=== PATIENT | male | born 1970 | race Caucasian/White ===

== ENCOUNTER 2017-03-04 17:00 | Inpatient (IN) | payer OTHER ==
[2017-03-04] MEDS ORDERED: Aspirin 325 mg EC Tablets PO STA (18:11)
--- NOTE | 2017-03-04 18:11 | C.PDOC ---
History Of Present Illness 46 yr old male presents to the ER with complaints of worsening chest pain since morning. Patient states he has had intermittent exertional chest pain for the past 1 month and is s/p nuclear stress on 03/01 but now has new onset of non- exertional left sided chest pain. States the pain is sharp and more intense than prior and has been wax/wane today. Patient is currently symptomatic. Also reports of SOB which has now resolved. Patient is pending follow up with DR. Weir. Patient denies fever, nausea, vomiting, weakness or numbness. WORSENING CP THIS MORNING. PS W INTERMIT EXERTIONAL CP X 1 MO S/P NUCLEAR STRESS 03/01. NOW W NEW ONSET NONEXERTIONAL L SIDED CP, SHARP AND MORE INTENSE THAN PRIOR. WAX WANE TODAY. SYMPTOMATIC CURRENTLY. +SOB NOW RESOLVED. PENDING FU DR WEIR PMD A WAGNER EXAM MILD DIST NONTOXIC NEG Time Seen by Provider: 03/04/17 17:44 Chief Complaint (Nursing): Chest Pain History Per: Patient History/Exam Limitations: no limitations Onset/Duration Of Symptoms: Intermittent Episodes (1 month), Worse Since ( Morning) Current Symptoms Are (Timing): Still Present Past Medical History Reviewed: Historical Data, Nursing Documentation, Vital Signs Vital Signs: Last Vital Signs Temp 97.8 F 03/04/17 17:11 Pulse 76 03/04/17 18:47 Resp 18 03/04/17 18:47 BP 150/90 03/04/17 18:47 Pulse Ox 99 03/04/17 18:47 - Medical History PMH: HTN, Hypercholesterolemia, Hyperlipidemia Family History: States: No Known Family Hx - Social History Hx Alcohol Use: No Hx Substance Use: No - Immunization History Hx Tetanus Toxoid Vaccination: No Hx Influenza Vaccination: No Hx Pneumococcal Vaccination: No Review Of Systems Except As Marked, All Systems Reviewed And Found Negative. Constitutional: Negative for: Fever Cardiovascular: Positive for: Chest Pain Respiratory: Positive for: Shortness of Breath (Now resolved) Gastrointestinal: Negative for: Nausea, Vomiting Neurological: Negative for: Weakness, Numbness Physical Exam - Physical Exam Appears: Non-toxic, In Acute Distress (Mild) Skin: Warm, Dry, No Rash Head: Atraumatic, Normacephalic Oral Mucosa: Moist Neck: Normal, Normal ROM, Supple Cardiovascular: Rhythm Regular, No Murmur Respiratory: Normal Breath Sounds, No Rales, No Rhonchi, No Stridor, No Wheezing Extremity: Normal ROM, No Swelling Neurological/Psych: Oriented x3, Normal Speech, Normal Motor, Normal Sensation ED Course And Treatment - Laboratory Results Result Diagrams: 03/04/17 18:18 03/04/17 18:18 ECG: Interpreted By Me ECG Rhythm: Sinus Rhythm ECG Interpretation: Normal Rate From EC (BPM) O2 Sat by Pulse Oximetry: 98 (RA) Pulse Ox Interpretation: Normal () - Radiology CXR: Interpreted by Me, Viewed By Me CXR Interpretation: Yes: No Acute Disease Progress - Re-Evaluation Re-evaluation Note: 03/04/17 18:14 D/W DR WEIR WILL ADMIT. REQUESTS CONSULT DR KASPER, ICU CONSULT 03/04/17 18:23 D/W DR KASPER WILL CONSULT, REQUESTS CALLBACK W RESULTS 03/04/17 18:26 D/W DR Roro GONZALEZ C/F ICU WILL EVAL IN ER. ADVISES VISCOUS PATYO AND SHAKA STAT 03/04/17 18:48 CLEARED FOR TELE S/P ICU EVAL - Data Reviewed Data Reviewed: Lab, Diagnostic imaging, EKG, Old records - Critical Care Citical Care: Excluding Proc Time Critical Care Time: 90 minutes - Continuity of Care Discussed patient case with:: Patient, PMD Discussed pt. case with admissions consultant/specialty: Cardiology, Pulmonary/Crit. Care Medical Decision Making Medical Decision Making: PLAN: * CXR * EKG * Troponin * CBCCMP * Lovenox SC * Nitroglycerin TOP * Aspirin PO * Lidocaine Vidcous PO * Magnesium Hydroxide PO * Tylenol PO Disposition Counseled Patient/Family Regarding: Studies Performed, Diagnosis - Disposition Disposition: HOSPITALIZED Disposition Time: 18:48 Condition: STABLE Forms: [facility] (Portuguese) - POA Present On Arrival: None - Clinical Impression Clinical Impression: Unstable angina - Scribe Statement The provider has reviewed the documentation as recorded by the Boraibadolfo Bennett Provider Attestation: All medical record entries made by the Scribe were at my direction and personally dictated by me. I have reviewed the chart and agree that the record accurately reflects my personal performance of the history, physical exam, medical decision making, and the department course for this patient. I have also personally directed, reviewed, and agree with the discharge instructions and disposition. Decision To Admit - Pt Status Changed To: Hospital Disposition Of: Inpatient - Admit Certification Admit to Inpatient:: After my assessment, the patient will require hospitalization for at least two midnights. This is because of the severity of symptoms shown, intensity of services needed, and/or the medical risk in this patient being treated as an outpatient. - InPatient: Physician Admission Certification: I certify that this patient requires 2 or more midnights of care for the following reason:: SEE NOTE - . Bed Request Type: Telemetry Admitting Physician: Gustavo Weir Patient Diagnosis: Unstable angina
[2017-03-04 18:21] LABS: BASO % 0.5 % (0.0-2.0); EOS # 0.3 K/uL (0.0-0.7); EOS % 3.2 % (0.0-4.0); HEMATOCRIT 41.1 % (35.0-51.0); LYMPH # 2.9 K/uL (1.0-4.3); LYMPH % 33.8 % (20.0-40.0); MEAN CELL VOLUME 87.3 fL (80.0-94.0); MEAN CORPUSCULAR HEMOGLOBIN 29.2 pg (27.0-31.0); MEAN CORPUSCULAR HGB CONC 33.4 g/dL (33.0-37.0); MEAN PLATELET VOLUME 9.4 fL (7.2-11.7); MONO # 0.7 K/uL (0.0-0.8); MONO % 8.6 % (0.0-10.0); RED CELL DISTRIBUTION WIDTH 12.7 % (11.5-14.5); WHITE BLOOD COUNT 8.7 K/uL (4.8-10.8)
[2017-03-04] MEDS ORDERED: Nitroglycerin 2% Ointment Foilpak UD TOP STA (18:22)
[2017-03-04] MEDS ORDERED: Magnesium Hydroxide Susp 30 ml UD PO STA (18:24)
[2017-03-04] MEDS ORDERED: Nitroglycerin 2% Ointment Foilpak UD TOP ONE (18:30)
[2017-03-04] MEDS ORDERED: Enoxaparin 30 mg Syringe ONE (18:31)
[2017-03-04 18:32] LABS: ALB/GLOB RATIO 1.4 (1.0-2.1); ALKALINE PHOSPHATASE 77 U/L (38-126); ALT/SGPT 36 U/L (21-72); AST/SGOT 21 U/L (17-59); BILIRUBIN,TOTAL 0.9 mg/dL (0.2-1.3); BLOOD UREA NITROGEN 12 mg/dL (9-20); CALCIUM 8.9 mg/dl (8.6-10.4); CARBON DIOXIDE 27 mmol/L (22-30); CHLORIDE 98 mmol/L (98-107); GFR AFRICAN-AMERICAN > 60; GLUCOSE,RANDOM 105 mg/dL (75-110); POTASSIUM 4.2 mmol/L (3.6-5.2); SODIUM 135 mmol/L (132-148); TOTAL PROTEIN 7.3 g/dL (6.3-8.3)
[2017-03-04] MEDS ORDERED: Aspirin 325 mg EC Tablets PO ONE (18:32)
[2017-03-04] MEDS ORDERED: Magnesium Hydroxide Susp 30 ml UD ONE (18:32)
[2017-03-04] MEDS ORDERED: Enoxaparin 100 mg Syringe SC STA (18:34)
[2017-03-04 18:36] LABS: INR 1.1
[2017-03-04] MEDS: Enoxaparin 30 mg Syringe SC STA ×2 (18:44→19:13)
--- NOTE | 2017-03-04 22:27 | CP.PCM.HP ---
History of Present Illness - History of Present Illness History of Present Illness: 46 year old with mixed hyperlipidemia, on medical treatment for CAd after a positive EST after an exertional CP. now admitted through ED with prolonged CP at rest no EKG changes for cath Present on Admission - Present on Admission Any Indicators Present on Admission: No Review of Systems - Review of Systems Systems not reviewed;Unavailable: Unstable Vital Signs - Constitutional Constitutional: Anorexia, Weakness - EENT Eyes: absent: Discharge Ears: absent: Ear Discharge, Dizziness Nose/Mouth/Throat: absent: Epistaxis - Cardiovascular Cardiovascular: Chest Pain, Diaphoresis, Dyspnea, Palpitations. absent: Acrocyanosis, Syncope - Respiratory Respiratory: Dyspnea. absent: Cough, Hemoptysis - Gastrointestinal Gastrointestinal: absent: Abdominal Pain, Constipation, Diarrhea, Vomiting - Genitourinary Genitourinary: absent: Change in Urinary Stream Past Patient History - Infectious Disease Hx of Infectious Diseases: None - Past Social History Smoking Status: Never Smoked - CARDIAC Hx Hypercholesterolemia: Yes Hx Hypertension: Yes - PSYCHIATRIC Hx Substance Use: No - SURGICAL HISTORY Hx Surgeries: Yes Other/Comment: Right hand surgery in 2008 - ANESTHESIA Hx Anesthesia: Yes Hx Anesthesia Reactions: No Hx Malignant Hyperthermia: No Meds Allergies/Adverse Reactions: Allergies Allergy/AdvReac Type Severity Reaction Status Date / Time No Known Allergies Allergy Verified 03/04/17 17:15 Physical Exam - Constitutional Appears: In Acute Distress - Head Exam Head Exam: ATRAUMATIC - Eye Exam Eye Exam: EOMI - ENT Exam ENT Exam: Mucous Membranes Moist - Neck Exam Neck exam: Negative for: Lymphadenopathy, Thyromegaly - Respiratory Exam Respiratory Exam: Clear to Auscultation Bilateral. absent: Rales, Rhonchi, Wheezes - Cardiovascular Exam Cardiovascular Exam: REGULAR RHYTHM. absent: Gallop, JVD, Systolic Murmur - GI/Abdominal Exam GI & Abdominal Exam: Normal Bowel Sounds. absent: Organomegaly - Rectal Exam Rectal Exam: Deferred - Extremities Exam Extremities exam: Positive for: normal capillary refill. Negative for: calf tenderness - Back Exam Back exam: NORMAL INSPECTION - Neurological Exam Neurological exam: Alert, Oriented x3 - Psychiatric Exam Psychiatric exam: Normal Mood - Skin Skin Exam: Dry Results - Vital Signs Recent Vital Signs: Last Vital Signs Temp 97.7 F 03/04/17 22:05 Pulse 72 03/04/17 22:05 Resp 18 03/04/17 22:05 BP 118/72 03/04/17 22:05 Pulse Ox 100 03/04/17 22:05 - Labs Result Diagrams: 03/05/17 07:27 03/05/17 07:27 Labs: Laboratory Results - last 24 hr 03/04/17 03/04/17 03/04/17 18:18 18:18 18:18 WBC 8.7 RBC 4.71 Hgb 13.7 Hct 41.1 MCV 87.3 MCH 29.2 MCHC 33.4 RDW 12.7 Plt Count 328 MPV 9.4 Neut % (Auto) 53.9 Lymph % (Auto) 33.8 [place] % (Auto) 8.6 Eos % (Auto) 3.2 Baso % (Auto) 0.5 Neut # 4.7 Lymph # 2.9 [place] # 0.7 Eos # 0.3 Baso # 0.0 PT 12.2 INR 1.1 APTT 33 Sodium 135 Potassium 4.2 Chloride 98 Carbon Dioxide 27 Anion Gap 13 BUN 12 Creatinine 0.8 Est GFR ( Amer) > 60 Est GFR (Non-Af Amer) > 60 Random Glucose 105 Calcium 8.9 Total Bilirubin 0.9 AST 21 ALT 36 Alkaline Phosphatase 77 Troponin I < 0.0120 Total Protein 7.3 Albumin 4.3 Globulin 3.0 Albumin/Globulin Ratio 1.4 Blood Type Antibody Screen 03/04/17 18:32 WBC RBC Hgb Hct MCV MCH MCHC RDW Plt Count MPV Neut % (Auto) Lymph % (Auto) [place] % (Auto) Eos % (Auto) Baso % (Auto) Neut # Lymph # [place] # Eos # Baso # PT INR APTT Sodium Potassium Chloride Carbon Dioxide Anion Gap BUN Creatinine Est GFR ( Amer) Est GFR (Non-Af Amer) Random Glucose Calcium Total Bilirubin AST ALT Alkaline Phosphatase Troponin I Total Protein Albumin Globulin Albumin/Globulin Ratio Blood Type A POSITIVE Antibody Screen Negative Assessment & Plan (1) Unstable angina Status: Acute Comment: Nstemi, medical treatment, for cath, f/u with invass[facility] cardiology Decision To Admit - Pt Status Changed To: Hospital Disposition Of: Inpatient - Admit Certification Admit to Inpatient:: After my assessment, the patient will require hospitalization for at least two midnights. This is because of the severity of symptoms shown, intensity of services needed, and/or the medical risk in this patient being treated as an outpatient. - InPatient: Physician Admission Certification:: yes - . Bed Request Type: Regular
[2017-03-04] MEDS ORDERED: HYDROmorphone 1 mg/ml ISec IVP PRN (22:28)
[2017-03-05] MEDS: Oxycodone/Acetaminophen 5/325 mg Tab PO PRN (02:04)
--- NOTE | 2017-03-05 05:12 | CON ---
CARDIOLOGY CONSULTATION REASON FOR CONSULTATION: Chest pain. HISTORY OF PRESENT ILLNESS: The patient is a 46-year-old [place] male who has history of hypertension, who presented to Dr. Campbell with chest pain. Myoview stress test was performed 3 days ago which was reported to be positive for mild inferolateral ischemia. Ejection fraction was measured as 61%. The patient presented because of chest pain that is tightness in nature, associated with diaphoresis, the patient is quite chest pain free at this time. SOCIAL HISTORY: Nonsmoker. FAMILY HISTORY: , lives with his . Works as a shuttle van driver. MEDICATIONS: The patient was not taking medications at home. PHYSICAL EXAMINATION: GENERAL: The patient is middle-aged male, who does not appear to be in any distress. VITAL SIGNS: Blood pressure 132/85, heart rate 77, temperature 97.8, respirations 18. HEENT: Normocephalic. NECK: No JVD. CHEST: Clear. HEART: S1 and S2 regular. ABDOMEN: Soft. EXTREMITIES: No edema. LABORATORY DATA: Today's SMA-7 is within normal limits. Yesterday's troponin is negative. PT, PTT, and INR are within normal limits. CBC within normal limits. EKG revealed normal sinus rhythm. Chest x-ray revealed normal cardiac silhouette, no infiltrate or effusion. ASSESSMENT: 1. Chest pain, rule out myocardial infarction. 2. Positive Myoview stress test with evidence of inferolateral ischemia. RECOMMENDATIONS: Admit the patient to telemetry, start therapeutic subcutaneous Lovenox at 90 mg once a day, start Lipitor at 40 mg once a day, aspirin 81 mg once a day, Plavix 75 once a day, Lopressor 25 mg twice a day. Cardiac catheterization will be performed as early as Monday and if the patient develops acute ischemic EKG changes, significant elevated troponins, hemodynamic instability or malignant ventricular arrhythmia, then cardiac catheterization will be considered on an emergency basis. Bill Hilton MD
[2017-03-05 07:36] LABS: BASO % 0.6 % (0.0-2.0); EOS # 0.2 K/uL (0.0-0.7); EOS % 3.2 % (0.0-4.0); HEMATOCRIT 38.6 % (35.0-51.0); LYMPH # 2.8 K/uL (1.0-4.3); LYMPH % 37.3 % (20.0-40.0); MEAN CELL VOLUME 88.1 fL (80.0-94.0); MEAN CORPUSCULAR HEMOGLOBIN 29.5 pg (27.0-31.0); MEAN CORPUSCULAR HGB CONC 33.5 g/dL (33.0-37.0); MEAN PLATELET VOLUME 9.4 fL (7.2-11.7); MONO # 0.6 K/uL (0.0-0.8); MONO % 8.3 % (0.0-10.0); NRBC % 0.1 % (0.0-2.0); RED CELL DISTRIBUTION WIDTH 12.8 % (11.5-14.5); WHITE BLOOD COUNT 7.6 K/uL (4.8-10.8)
[2017-03-05 08:01] LABS: ALB/GLOB RATIO 1.4 (1.0-2.1); ALKALINE PHOSPHATASE 75 U/L (38-126); ALT/SGPT 33 U/L (21-72); AST/SGOT 22 U/L (17-59); BILIRUBIN,TOTAL 0.8 mg/dL (0.2-1.3); BLOOD UREA NITROGEN 14 mg/dL (9-20); CALCIUM 8.7 mg/dl (8.6-10.4); CARBON DIOXIDE 27 mmol/L (22-30); CHLORIDE 100 mmol/L (98-107); CHOLESTEROL 118 mg/dL (0-199); GFR AFRICAN-AMERICAN > 60; GLUCOSE,RANDOM 96 mg/dL (75-110); POTASSIUM 4.1 mmol/L (3.6-5.2); SODIUM 136 mmol/L (132-148); TOTAL PROTEIN 6.7 g/dL (6.3-8.3)
[2017-03-05] MEDS: Enoxaparin 40 mg Syringe SC SCH (10:28)
--- NOTE | 2017-03-05 13:58 | RAD ---
PROCEDURE: CHEST RADIOGRAPH, 1 VIEW HISTORY: chest pain COMPARISON: None available. FINDINGS: LUNGS: Clear. PLEURA: No pneumothorax or pleural fluid seen. CARDIOVASCULAR: Heart size upper limits of normal. OSSEOUS STRUCTURES: No significant abnormalities. VISUALIZED UPPER ABDOMEN: Normal. OTHER FINDINGS: None. IMPRESSION: No active disease.
--- NOTE | 2017-03-05 19:49 | CP.PCM.PN ---
Subjective - Date & Time of Evaluation Date of Evaluation: 03/05/17 Time of Evaluation: 19:00 - Subjective Subjective: no further, cp for cath Objective - Vital Signs/Intake and Output Vital Signs (last 24 hours): Temp Pulse Resp BP Pulse Ox 97.7 F 65 20 122/79 98 03/05/17 16:45 03/05/17 16:45 03/05/17 16:45 03/05/17 17:54 03/05/17 16:45 - Medications Medications: Current Medications Acetaminophen (Tylenol 325mg Tab) 650 mg PO Q6 PRN PRN Reason: Fever >100.4 F Aspirin (Aspirin Chewable) 81 mg PO DAILY [facility] Last Admin: 03/05/17 10:25 Dose: 81 mg Enoxaparin Sodium (Lovenox) 40 mg SC DAILY [facility] Last Admin: 03/05/17 10:28 Dose: 40 mg Hydromorphone HCl (Dilaudid) 1 mg IVP Q6H PRN PRN Reason: Pain, severe (8-10) Metoprolol Tartrate (Lopressor) 25 mg PO BID [facility] Last Admin: 03/05/17 17:54 Dose: 25 mg Ondansetron HCl (Zofran Inj) 4 mg IVP Q6 PRN PRN Reason: Nausea/Vomiting Oxycodone/Acetaminophen (Percocet 5/325 Mg Tab) 1 tab PO Q4H PRN PRN Reason: Pain, moderate (4-7) Stop: 03/07/17 22:29 Last Admin: 03/05/17 02:04 Dose: 1 tab Rosuvastatin Calcium (Crestor) 20 mg PO HS [facility] Last Admin: 03/04/17 22:44 Dose: 20 mg Sucralfate (Carafate Tab) 1 gm PO BID [facility] Last Admin: 03/05/17 17:54 Dose: 1 gm - Labs Labs: 03/05/17 07:27 03/05/17 07:27 PT 12.2 SECONDS (9.7-12.2) 03/04/17 18:18 INR 1.1 03/04/17 18:18 APTT 33 SECONDS (21-34) 03/04/17 18:18 - Constitutional Appears: Non-toxic - Head Exam Head Exam: ATRAUMATIC - Eye Exam Eye Exam: EOMI - ENT Exam ENT Exam: Mucous Membranes Moist - Neck Exam Neck Exam: absent: Lymphadenopathy, Thyromegaly - Respiratory Exam Respiratory Exam: Clear to Ausculation Bilateral. absent: Rales - Cardiovascular Exam Cardiovascular Exam: REGULAR RHYTHM. absent: Murmur - GI/Abdominal Exam GI & Abdominal Exam: Normal Bowel Sounds. absent: Organomegaly - Rectal Exam Rectal Exam: Deferred - Extremities Exam Extremities Exam: Normal Capillary Refill. absent: Calf Tenderness - Neurological Exam Neurological Exam: Alert, Oriented x3 - Psychiatric Exam Psychiatric exam: Normal Mood - Skin Skin Exam: Dry Assessment and Plan (1) Unstable angina Status: Acute
--- NOTE | 2017-03-05 20:36 | PN ---
SUBJECTIVE: The patient denies any shortness of breath. No chest pain at this time. No reported ventricular arrhythmia. PHYSICAL EXAMINATION: VITAL SIGNS: Blood pressure 122/79, heart rate 65, temperature 97.7, respirations 20. HEENT: Normocephalic. CHEST: Clear. HEART: S1 and S2 regular. ABDOMEN: Soft. EXTREMITIES: No edema. LABORATORY DATA: Three sets of troponins are negative. Today's SMA-7 is within normal limit. ASSESSMENT: 1. Chest pain, myocardial infarction is ruled out. 2. Recent positive Myoview stress test. RECOMMENDATIONS: Continue current aspirin, Crestor, Lopressor, subcutaneous Lovenox. The patient will be scheduled for cardiac catheterization for tomorrow if the schedule allows and would be kept n.p.o. after breakfast. Bill Hilton MD
[2017-03-06] MEDS: Oxycodone/Acetaminophen 5/325 mg Tab PO PRN (08:17)
[2017-03-06] MEDS: Enoxaparin 40 mg Syringe SC SCH (10:55)
--- NOTE | 2017-03-06 12:05 | CP.PCM.PN ---
Subjective - Date & Time of Evaluation Date of Evaluation: 03/06/17 Time of Evaluation: 13:00 - Subjective Subjective: For coronary angiogram today, and negative enzymes. Unstable angina, non-ST elevation myocardial infarction with negative troponin. New characters of chest pain. At rest now. Objective - Vital Signs/Intake and Output Vital Signs (last 24 hours): Temp Pulse Resp BP Pulse Ox 98.1 F 73 18 167/65 H 97 03/06/17 08:20 03/06/17 08:20 03/06/17 08:20 03/06/17 09:24 03/06/17 08:20 Intake and Output: 03/06/17 03/06/17 06:59 18:59 Intake Total 240 Balance 240 - Medications Medications: Current Medications Acetaminophen (Tylenol 325mg Tab) 650 mg PO Q6 PRN PRN Reason: Fever >100.4 F Aspirin (Aspirin Chewable) 81 mg PO DAILY [facility] Last Admin: 03/06/17 09:23 Dose: 81 mg Enoxaparin Sodium (Lovenox) 40 mg SC DAILY [facility] Last Admin: 03/06/17 10:55 Dose: 40 mg Hydromorphone HCl (Dilaudid) 1 mg IVP Q6H PRN PRN Reason: Pain, severe (8-10) Metoprolol Tartrate (Lopressor) 25 mg PO BID [facility] Last Admin: 03/06/17 09:24 Dose: 25 mg Ondansetron HCl (Zofran Inj) 4 mg IVP Q6 PRN PRN Reason: Nausea/Vomiting Last Admin: 03/05/17 20:40 Dose: 4 mg Oxycodone/Acetaminophen (Percocet 5/325 Mg Tab) 1 tab PO Q4H PRN PRN Reason: Pain, moderate (4-7) Stop: 03/07/17 22:29 Last Admin: 03/06/17 08:17 Dose: 1 tab Rosuvastatin Calcium (Crestor) 20 mg PO HS [facility] Last Admin: 03/05/17 21:01 Dose: 20 mg Sucralfate (Carafate Tab) 1 gm PO BID [facility] Last Admin: 03/06/17 09:24 Dose: 1 gm - Labs Labs: 03/05/17 07:27 03/05/17 07:27 PT 12.2 SECONDS (9.7-12.2) 03/04/17 18:18 INR 1.1 03/04/17 18:18 APTT 33 SECONDS (21-34) 03/04/17 18:18 - Constitutional Appears: Non-toxic - Head Exam Head Exam: ATRAUMATIC - Eye Exam Eye Exam: EOMI - ENT Exam ENT Exam: Mucous Membranes Moist - Neck Exam Neck Exam: absent: Lymphadenopathy, Thyromegaly - Respiratory Exam Respiratory Exam: Clear to Ausculation Bilateral. absent: Rales, Wheezes - Cardiovascular Exam Cardiovascular Exam: REGULAR RHYTHM. absent: Murmur - GI/Abdominal Exam GI & Abdominal Exam: Normal Bowel Sounds. absent: Organomegaly - Rectal Exam Rectal Exam: Deferred - Neurological Exam Neurological Exam: Alert, Oriented x3 - Psychiatric Exam Psychiatric exam: Normal Mood - Skin Skin Exam: Dry Assessment and Plan (1) Unstable angina Status: Acute
--- NOTE | 2017-03-06 15:25 | PN ---
SUBJECTIVE: The patient denies any chest pain. No reported ventricular arrhythmia. PHYSICAL EXAMINATION: VITAL SIGNS: Blood pressure 107/65, heart rate 73, temperature 98.1, respirations 18. HEENT: Normocephalic. CHEST: Clear. HEART: S1 and S2 regular. EXTREMITIES: No edema. LABORATORY DATA: Total of three troponins are within normal limits. ASSESSMENT: 1. Chest pain, myocardial infarction is ruled out. 2. Recent positive Myoview stress test. RECOMMENDATIONS: Continue current aspirin, Crestor, Lopressor and subcutaneous Lovenox. 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 Bill Hilton MD
[2017-03-07] MEDS: Enoxaparin 40 mg Syringe SC SCH (10:53)
[2017-03-07] MEDS ORDERED: Iohexol 350mgl/ml 50 ML ONE (12:29)
[2017-03-07] MEDS ORDERED: Midazolam 2 MG/2 ML VIAL ONE (12:30)
--- NOTE | 2017-03-07 19:14 | CP.PCM.PN ---
Subjective - Date & Time of Evaluation Date of Evaluation: 03/07/17 Time of Evaluation: 12:00 - Subjective Subjective: had cath,critical OM for PCI in am Objective - Vital Signs/Intake and Output Vital Signs (last 24 hours): Temp Pulse Resp BP Pulse Ox 97.7 F 68 20 115/61 97 03/07/17 15:30 03/07/17 15:30 03/07/17 15:30 03/07/17 17:18 03/07/17 15:30 - Medications Medications: Current Medications Acetaminophen (Tylenol 325mg Tab) 650 mg PO Q6 PRN PRN Reason: Fever >100.4 F Aspirin (Aspirin Chewable) 81 mg PO DAILY [facility] Last Admin: 03/07/17 09:44 Dose: 81 mg Clopidogrel Bisulfate (Plavix) 75 mg PO DAILY [facility] Enoxaparin Sodium (Lovenox) 40 mg SC DAILY [facility] Last Admin: 03/07/17 10:53 Dose: Not Given Hydromorphone HCl (Dilaudid) 1 mg IVP Q6H PRN PRN Reason: Pain, severe (8-10) Metoprolol Tartrate (Lopressor) 25 mg PO BID [facility] Last Admin: 03/07/17 17:18 Dose: 25 mg Ondansetron HCl (Zofran Inj) 4 mg IVP Q6 PRN PRN Reason: Nausea/Vomiting Last Admin: 03/05/17 20:40 Dose: 4 mg Oxycodone/Acetaminophen (Percocet 5/325 Mg Tab) 1 tab PO Q4H PRN PRN Reason: Pain, moderate (4-7) Stop: 03/07/17 22:29 Last Admin: 03/06/17 08:17 Dose: 1 tab Rosuvastatin Calcium (Crestor) 20 mg PO HS [facility] Last Admin: 03/06/17 21:24 Dose: 20 mg Sucralfate (Carafate Tab) 1 gm PO BID [facility] Last Admin: 03/07/17 17:18 Dose: 1 gm - Labs Labs: 03/05/17 07:27 03/05/17 07:27 PT 12.2 SECONDS (9.7-12.2) 03/04/17 18:18 INR 1.1 03/04/17 18:18 APTT 33 SECONDS (21-34) 03/04/17 18:18 - Constitutional Appears: Non-toxic - Head Exam Head Exam: ATRAUMATIC - Eye Exam Eye Exam: EOMI - ENT Exam ENT Exam: Mucous Membranes Moist - Neck Exam Neck Exam: absent: Lymphadenopathy, Thyromegaly - Respiratory Exam Respiratory Exam: Clear to Ausculation Bilateral. absent: Rales - Cardiovascular Exam Cardiovascular Exam: REGULAR RHYTHM. absent: Murmur - GI/Abdominal Exam GI & Abdominal Exam: Normal Bowel Sounds. absent: Organomegaly - Rectal Exam Rectal Exam: Deferred - Extremities Exam Extremities Exam: Normal Capillary Refill. absent: Calf Tenderness - Neurological Exam Neurological Exam: Alert, Oriented x3 - Psychiatric Exam Psychiatric exam: Normal Affect - Skin Skin Exam: Dry Assessment and Plan (1) Unstable angina Status: Acute
--- NOTE | 2017-03-08 00:04 | CARDCATH ---
INDICATIONS: The patient is a 46-year-old male, originally from [place], who has a history of hypertension, diabetes mellitus, presented because of chest pain. The patient had recent positive Myoview stress test, cardiac catheterization was recommended. The procedure and its risks were explained to the patient who understood and agreed for the procedure. PROCEDURE: Left and right coronary angiography was performed with 6-Macedonian JL4 and JR4 diagnostic catheters. Left ventriculogram was performed with 6-Macedonian pigtail catheter. The patient tolerated the procedure well without any complications. ANGIOGRAPHIC FINDINGS: Selective injection of left coronary artery revealed left main to be a normal vessel. Left main trifurcated into medium sized LAD, medium-sized circumflex artery and a very small ramus branch. had 60% narrowing in the ostium of the first and second diagonal branches which were small caliber branches. The ramus intermedius branch was diffusely diseased in its proximal segment and has significant ostial disease; however, it was a small caliber branch. The circumflex artery gave off two major obtuse marginal branches, the first OM had critical disease in its proximal portion of about 90%stenosis, the second OM had 50% stenosis in its mid portion, however, it was a small caliber branch. Selective injection of right coronary artery revealed small caliber dominant vessel that was angiographically unremarkable. Left ventriculogram performed in [place] projection revealed normal wall motion, ejection fraction estimated at 55%. 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 RECOMMENDATIONS: PCI to that vessel is recommended and will be scheduled at [facility]. Bill Hilton MD
--- NOTE | 2017-03-08 18:26 | CP.PCM.PN ---
Subjective - Date & Time of Evaluation Date of Evaluation: 03/08/17 Time of Evaluation: 13:00 - Subjective Subjective: had PCI did well Objective - Vital Signs/Intake and Output Vital Signs (last 24 hours): Temp Pulse Resp BP Pulse Ox 98.1 F 70 20 120/73 99 03/08/17 07:00 03/08/17 08:00 03/08/17 07:00 03/08/17 10:09 03/08/17 07:00 Intake and Output: 03/08/17 03/08/17 06:59 18:59 Intake Total 560 Balance 560 - Medications Medications: Current Medications Acetaminophen (Tylenol 325mg Tab) 650 mg PO Q6 PRN PRN Reason: Fever >100.4 F Aspirin (Aspirin Chewable) 81 mg PO DAILY [facility] Last Admin: 03/08/17 10:09 Dose: 81 mg Clopidogrel Bisulfate (Plavix) 75 mg PO DAILY [facility] Last Admin: 03/08/17 10:26 Dose: 75 mg Enoxaparin Sodium (Lovenox) 40 mg SC DAILY [facility] Last Admin: 03/07/17 10:53 Dose: Not Given Hydromorphone HCl (Dilaudid) 1 mg IVP Q6H PRN PRN Reason: Pain, severe (8-10) Metoprolol Tartrate (Lopressor) 25 mg PO BID [facility] Last Admin: 03/08/17 10:09 Dose: 25 mg Ondansetron HCl (Zofran Inj) 4 mg IVP Q6 PRN PRN Reason: Nausea/Vomiting Last Admin: 03/05/17 20:40 Dose: 4 mg Rosuvastatin Calcium (Crestor) 20 mg PO [facility] Last Admin: 03/07/17 21:38 Dose: 20 mg Sucralfate (Carafate Tab) 1 gm PO BID [facility] Last Admin: 03/08/17 10:09 Dose: 1 gm - Labs Labs: 03/05/17 07:27 03/05/17 07:27 PT 12.2 SECONDS (9.7-12.2) 03/04/17 18:18 INR 1.1 03/04/17 18:18 APTT 33 SECONDS (21-34) 03/04/17 18:18 - Constitutional Appears: Non-toxic - Head Exam Head Exam: ATRAUMATIC - Eye Exam Eye Exam: EOMI - ENT Exam ENT Exam: Mucous Membranes Moist - Neck Exam Neck Exam: absent: Lymphadenopathy, Thyromegaly - Respiratory Exam Respiratory Exam: Clear to Ausculation Bilateral. absent: Rales - Cardiovascular Exam Cardiovascular Exam: REGULAR RHYTHM. absent: Murmur - GI/Abdominal Exam GI & Abdominal Exam: Normal Bowel Sounds. absent: Organomegaly - Rectal Exam Rectal Exam: Deferred - Extremities Exam Extremities Exam: Normal Capillary Refill. absent: Calf Tenderness - Neurological Exam Neurological Exam: Alert, Oriented x3 - Psychiatric Exam Psychiatric exam: Normal Mood - Skin Skin Exam: Dry Assessment and Plan (1) Unstable angina Status: Acute
[2017-03-08] MEDS ORDERED: Oxycodone/Acetaminophen 5/325 mg Tab PO PRN (23:14)
[2017-03-09] MEDS: Enoxaparin 40 mg Syringe SC SCH ×2 (10:29→10:40)
[2017-03-09 12:27] VITALS: RESP 20
[2017-03-09] MEDS ORDERED: Aluminum Hydroxide/Magnesium Hydroxide Susp (30 mL) PO ONE (14:23)
[2017-03-09 15:20] VITALS: TEMP 97.7; O2SAT 96
--- NOTE | 2017-03-09 15:25 | CP.PCM.PN ---
Subjective - Date & Time of Evaluation Date of Evaluation: 03/09/17 Time of Evaluation: 15:25 - Subjective Subjective: PATIENT WAS ADMITTED FOR UNSTABLE ANGINA; CHEST PAIN FREE; AAOX3 DENIES ANY SOB; BURNING CHEST DISCOMFORT WHEN LAYING DOWN OR RIGHT AFTER FINISH EATING SOME FOOD STILL COMPLAINING OF BURNING SENSATION WHEN URINATE; NO SIGN OF DISTRESS NOTED Objective - Vital Signs/Intake and Output Vital Signs (last 24 hours): Temp Pulse Resp BP Pulse Ox 97.7 F 64 20 130/81 96 03/09/17 15:00 03/09/17 15:00 03/09/17 15:00 03/09/17 15:00 03/09/17 15:00 Intake and Output: 03/09/17 03/09/17 06:59 18:59 Intake Total 415 Output Total 300 Balance 115 - Medications Medications: Current Medications Acetaminophen (Tylenol 325mg Tab) 650 mg PO Q6 PRN PRN Reason: Fever >100.4 F Aspirin (Aspirin Chewable) 81 mg PO DAILY [facility] Last Admin: 03/09/17 10:29 Dose: 81 mg Clopidogrel Bisulfate (Plavix) 75 mg PO DAILY [facility] Last Admin: 03/09/17 10:30 Dose: 75 mg Enoxaparin Sodium (Lovenox) 40 mg SC DAILY [facility] Last Admin: 03/09/17 10:40 Dose: 40 mg Metoprolol Tartrate (Lopressor) 25 mg PO BID [facility] Last Admin: 03/09/17 10:40 Dose: 25 mg Ondansetron HCl (Zofran Inj) 4 mg IVP Q6 PRN PRN Reason: Nausea/Vomiting Last Admin: 03/05/17 20:40 Dose: 4 mg Oxycodone/Acetaminophen (Percocet 5/325 Mg Tab) 1 tab PO Q6H PRN PRN Reason: Pain, moderate (4-7) Stop: 03/11/17 23:15 Last Admin: 03/08/17 23:43 Dose: 1 tab Rosuvastatin Calcium (Crestor) 20 mg PO HS [facility] Last Admin: 03/08/17 22:29 Dose: 20 mg Sucralfate (Carafate Tab) 1 gm PO BID [facility] Last Admin: 03/09/17 10:30 Dose: 1 gm - Labs Labs: 03/05/17 07:27 03/05/17 07:27 PT 12.2 SECONDS (9.7-12.2) 03/04/17 18:18 INR 1.1 03/04/17 18:18 APTT 33 SECONDS (21-34) 03/04/17 18:18 - Head Exam Head Exam: NORMOCEPHALIC - Eye Exam Pupil Exam: PERRL - Respiratory Exam Respiratory Exam: Clear to Ausculation Bilateral - Cardiovascular Exam Cardiovascular Exam: +S1, +S2 - Exam Exam: NORMAL INSPECTION Assessment and Plan - Assessment and Plan (Free Text) Assessment: A/P PATIENT WAS SEEN AND EXAMINED AT THE BEDSIDE; URINE C&S WAS SEND AND INSTRUCT PATIENT TO F/U RESULT AT DR WEIR VISIT OUT PATIENT PCI AT [facility] AND DR MAJO TREADWELL FOR DC DISCUSS WITH DR WEIR AND EBEN PATIENT FOR DC FOLLOW UP WITH DR WEIR IN HIS OFFICE IN A WEEK ----CALL HIS OFFICE FOR APPOINTMENT AT YOUR APPOINTMENT ASK DR WEIR ABOUT THE RESULT OF URINE C&S COLLECTED BEFORE DISCAHRGE CONTINUE HOME MEDICATION AAS PER MED RECS NEW RX GIVEN : ASPIRIN 325 MG PO DAILY PLAVIX 75 MG PO DAILY TROPOL XL 50 MG PO DAILY PEPCID 20 MG PO DAILY CALL DR WEIR OR GO TO THE EMERGENCY ROOM IF SYMPTOMS RETURN OR WORSENING DISCUSS WITH PATIENT WHO AGREE AND VERBALIZED UNDERSTANDING
--- NOTE | 2017-03-09 15:35 | CARD ---
APPROVED REPORT EKG Measurement Heart [id number] <Conclusion> Normal sinus rhythm Normal ECG
[2017-03-09 16:03] VITALS: PULSE 68
[2017-03-09 17:11] VITALS: BP 116/77
--- NOTE | 2017-03-09 17:57 | PN ---
DATE: SUBJECTIVE: The patient reports epigastric burning sensation. No report of groin bleeding. PHYSICAL EXAMINATION: VITAL SIGNS: Blood pressure 118/77, heart rate 63, temperature 98.2, respirations 20. HEENT: Normocephalic. NECK: No JVD. CHEST: Clear. HEART: S1 and S2 regular. EXTREMITIES: No hematoma. ASSESSMENT AND PLAN: 1. Status post percutaneous coronary intervention to the first obtuse marginal branch. 2. Total occlusion of small caliber second marginal branch with 50% stenosis of a small caliber third marginal branch. RECOMMENDATIONS: Case was discussed with Dr. Felder, the primary crisis intervention specialist. The patient will be maintained on aspirin, Crestor, Lopressor and Plavix therapy. Bill Hilton MD
--- NOTE | 2017-03-09 21:10 | CP.PCM.DIS ---
Provider - Provider Date of Admission: 03/04/17 18:49 Attending physician: Gustavo Weir MD Time Spent in preparation of Discharge (in minutes): 25 Diagnosis - Discharge Diagnosis (1) Unstable angina Status: Acute Hospital Course - Lab Results Lab Results: Most Recent Lab Values WBC 7.6 K/uL (4.8-10.8) 03/05/17 07: RBC 4.38 Mil/uL (4.40-5.90) L 03/05/17 07:27 Hgb 12.9 g/dL (12.0-18.0) 03/05/17 07:27 Hct 38.6 % (35.0-51.0) 03/05/17 07: MCV 88.1 fL (80.0-94.0) 03/05/17 07: MCH 29.5 pg (27.0-31.0) 03/05/17 07: MCHC 33.5 g/dL (33.0-37.0) 03/05/17 07: RDW 12.8 % (11.5-14.5) 03/05/17 07:27 Plt Count 298 K/uL (130-400) 03/05/17 07:27 MPV 9.4 fL (7.2-11.7) 03/05/17 07:27 Neut % (Auto) 50.6 % (50.0-75.0) 03/05/17 07: Lymph % (Auto) 37.3 % (20.0-40.0) 03/05/17 07:27 [place] % (Auto) 8.3 % (0.0-10.0) 03/05/17 07:27 Eos % (Auto) 3.2 % (0.0-4.0) 03/05/17 07:27 Baso % (Auto) 0.6 % (0.0-2.0) 03/05/17 07:27 Neut # 3.8 K/uL (1.8-7.0) 03/05/17 07:27 Lymph # 2.8 K/uL (1.0-4.3) 03/05/17 07:27 [place] # 0.6 K/uL (0.0-0.8) 03/05/17 07:27 Eos # 0.2 K/uL (0.0-0.7) 03/05/17 07:27 Baso # 0.0 K/uL (0.0-0.2) 03/05/17 07:27 PT 12.2 SECONDS (9.7-12.2) 03/04/17 18:18 INR 1.1 03/04/17 18:18 APTT 33 SECONDS (21-34) 03/04/17 18:18 Sodium 136 mmol/L (132-148) 03/05/17 07:27 Potassium 4.1 mmol/L (3.6-5.2) 03/05/17 07:27 Chloride 100 mmol/L (98-107) 03/05/17 07:27 Carbon Dioxide 27 mmol/L (22-30) 03/05/17 07:27 Anion Gap 13 (10-20) 03/05/17 07:27 BUN 14 mg/dL (9-20) 03/05/17 07:27 Creatinine 0.9 mg/dL (0.8-1.5) 03/05/17 07:27 Est GFR ( Amer) > 60 03/05/17 07:27 Est GFR (Non-Af Amer) > 60 03/05/17 07:27 Random Glucose 96 mg/dL (75-110) 03/05/17 07:27 Hemoglobin A1c 6.5 % (4.2-6.5) 03/05/17 07:27 Calcium 8.7 mg/dl (8.6-10.4) 03/05/17 07:27 Total Bilirubin 0.8 mg/dL (0.2-1.3) 03/05/17 07:27 AST 22 U/L (17-59) 03/05/17 07:27 ALT 33 U/L (21-72) 03/05/17 07:27 Alkaline Phosphatase 75 U/L (38-126) 03/05/17 07:27 Troponin I < 0.0120 ng/mL (0.00-0.120) 03/05/17 17:08 Total Protein 6.7 g/dL (6.3-8.3) 03/05/17 07:27 Albumin 3.8 g/dL (3.5-5.0) 03/05/17 07:27 Globulin 2.8 gm/dL (2.2-3.9) 03/05/17 07:27 Albumin/Globulin Ratio 1.4 (1.0-2.1) 03/05/17 07:27 Triglycerides 179 mg/dL (0-149) H 03/05/17 07:27 Cholesterol 118 mg/dL (0-199) 03/05/17 07:27 LDL Cholesterol Direct 64 mg/dL (0-129) 03/05/17 07:27 HDL Cholesterol 26 mg/dL (30-70) L 03/05/17 07:27 Blood Type A POSITIVE 03/04/17 18:32 Antibody Screen Negative 03/04/17 18:32 - Hospital Course Hospital Course: admitted with new quality CP, neg TNI, cath with critical large OM/Ramus was stented at did well f/u as out pt Discharge Exam - Head Exam Head Exam: ATRAUMATIC, NORMOCEPHALIC - Eye Exam Eye Exam: EOMI - ENT Exam ENT Exam: Mucous Membranes Moist - Neck Exam Neck exam: Full Rom - Respiratory Exam Respiratory Exam: Clear to PA & Lateral. absent: Rales - Cardiovascular Exam Cardiovascular Exam: REGULAR RHYTHM. absent: Systolic Murmur - GI/Abdominal Exam GI & Abdominal Exam: Normal Bowel Sounds. absent: Organomegaly - Rectal Exam Rectal Exam: Deferred - Extremities Exam Extremities exam: normal capillary refill - Neurological Exam Neurological exam: Alert, Oriented x3 - Psychiatric Exam Psychiatric exam: Normal Mood - Skin Skin Exam: Dry Discharge Plan - Discharge Medications Prescriptions: Aspirin 325 mg PO DAILY #30 tab Famotidine [Pepcid] 20 mg PO DAILY #30 tab Clopidogrel [Plavix] 75 mg PO DAILY #30 tab Metoprolol Succinate [Toprol XL] 50 mg PO DAILY #30 tab - Follow Up Plan Condition: STABLE Disposition: HOME/ ROUTINE Instructions: Metoprolol (By mouth), Famotidine (By mouth), Aspirin (By mouth) , Clopidogrel (By mouth), Angina (DC), Coronary Artery Disease (DC), Heart Healthy Diet (DC), Heart Catheterization (DC), Coronary Angioplasty (DC) Additional Instructions: FOLLOW UP WITH DR WEIR IN HIS OFFICE IN A WEEK ----CALL HIS OFFICE FOR APPOINTMENT AT YOUR APPOINTMENT ASK DR WEIR ABOUT THE RESULT OF URINE C&S COLLECTED BEFORE DISCAHRGE CONTINUE HOME MEDICATION AAS PER MED RECS NEW RX GIVEN : ASPIRIN 325 MG PO DAILY PLAVIX 75 MG PO DAILY TROPOL XL 50 MG PO DAILY PEPCID 20 MG PO DAILY CALL DR WEIR OR GO TO THE EMERGENCY ROOM IF SYMPTOMS RETURN OR WORSENING Referrals: Gustavo Weir MD [Staff Provider] -
[2017-03-09 23:03] LABS: URINE BILIRUBIN NEGATIVE (NEGATIVE); URINE BLOOD NEGATIVE (NEGATIVE); URINE COLOR Yellow (YELLOW); URINE GLUCOSE (UA) NORMAL (Normal); URINE KETONE NEGATIVE (NEGATIVE); URINE LEUKOCYTE ESTERASE NEG Leu/uL (Negative); URINE PROTEIN NEGATIVE (NEGATIVE); URINE UROBILINOGEN NORMAL mg/dL (0.2-1.0); WBC URINE < 1 /hpf (0-5)
== END 2017-03-09 18:15 | disposition home or self-care (01) | DRG 124 ==
LOC: C.ER 17:00 → C.9E 18:49 → C.6T 20:39
PROVIDERS: ADMIT Internal Medicine Cardiovascular Disease; ATTEND Internal Medicine Cardiovascular Disease
PROC: 4A023N8 Measurement of Cardiac Sampling and Pressure, Bilateral, Percutaneous Approach (ICD-10-PCS; principal; 2017-03-05)
PROC: B211YZZ Fluoroscopy of Multiple Coronary Arteries using Other Contrast (ICD-10-PCS; 2017-03-05)
PROC: B216YZZ Fluoroscopy of Right and Left Heart using Other Contrast (ICD-10-PCS; 2017-03-05)
DX: I25.110 Atherosclerotic heart disease of native coronary artery with unstable angina pectoris (principal); E78.00 Pure hypercholesterolemia, unspecified; I10 Essential (primary) hypertension

== ENCOUNTER 2018-08-28 08:56 | Outpatient (CLI) | payer MEDICAID | END 2018-08-28 08:57 | disposition home or self-care (01) | LOC: C.CARD 08:56 ==

== ENCOUNTER 2018-09-04 09:10 | Outpatient (CLI) | payer MEDICAID | END 2018-09-04 09:11 | disposition home or self-care (01) | LOC: C.CARD 09:10 ==